=== PATIENT | male | born 1955 | race Caucasian/White ===

== ENCOUNTER → 2017-02-09 | Outpatient (CLI) | payer MEDICARE ==
[~2017-02-09] MED LIST: APIDRA SOL100 UNIT/1 SQ; ASPIRIN81 MG PO; CLINDAMYCIN HC300 MG PO; COREG 12.5MG12.5 MG PO; ENTRESTO PO; FENOFIBRATE160 MG PO; FUROSEMIDE80 MG PO; GLUCOPHAGE1000 MG PO; LANTUS SOL100 UNIT/1 SQ; LASIX20 MG PO; LIPITOR TAB 2020 MG PO; MAGOX 400400 MG PO; METFORMIN HCL1000 MG PO; PLAVIX 75 MG TA75 MG PO; VITAMIN D10000 UNIT PO
[2017-02-09 12:16] LABS: HEMOGLOBIN 13.2 gm/dl (14.0-17.5); RED BLOOD COUNT 4.45 M/UL (4.20-5.50); WHITE BLOOD COUNT 6.1 K/UL (4.5-11.0)
== END ==
LOC: LAB 11:42
PROVIDERS: Internal Medicine Nephrology
DX: N18.3 Chronic kidney disease, stage 3 (moderate) (principal)
CPT/HCPCS: 36415; 80048; 81001; 82043; 82570; 85027

== ENCOUNTER → 2017-02-16 | Outpatient (CLI) | payer MEDICARE | LOC: LAB 11:44 | PROVIDERS: Internal Medicine Nephrology | DX: N17.9 Acute kidney failure, unspecified (principal); E11.9 Type 2 diabetes mellitus without complications | CPT/HCPCS: 36415; 80048 ==

== ENCOUNTER 2017-04-06 14:24 | Inpatient (IN) | payer MEDICARE ==
[~2017-04-06] VITALS: Ht 182.9 cm; Wt 113.4 kg
[2017-04-06] MEDS ORDERED: GLUCOPHAGE1000 MG PO (17:00)
[2017-04-06] MEDS ORDERED: VITAMIN D10000 UNIT PO (17:01)
[2017-04-06] MEDS ORDERED: FENOFIBRATE160 MG PO (17:03)
[2017-04-06] MEDS ORDERED: LIPITOR TAB 2020 MG PO (17:03)
[2017-04-06] MEDS ORDERED: COREG 12.5MG12.5 MG PO (17:03)
[2017-04-06] MEDS ORDERED: MAGOX 400400 MG PO (17:03)
[2017-04-06] MEDS ORDERED: LANTUS SOL100 UNIT/1 SQ (17:04)
[2017-04-06] MEDS ORDERED: APIDRA SOL100 UNIT/1 SQ (17:05)
[2017-04-06] MEDS ORDERED: ENTRESTO PO (17:06)
[2017-04-06 18:30] LABS: HEMOGLOBIN 11.6 gm/dl (14.0-17.5); RED BLOOD COUNT 3.98 M/UL (4.20-5.50); WHITE BLOOD COUNT 12.2 K/UL (4.5-11.0)
[2017-04-07 04:41] LABS: HEMOGLOBIN 11.2 gm/dl (14.0-17.5); RED BLOOD COUNT 3.89 M/UL (4.20-5.50)
[2017-04-08 05:37] LABS: HEMOGLOBIN 9.8 gm/dl (14.0-17.5); WHITE BLOOD COUNT 9.7 K/UL (4.5-11.0)
[2017-04-08 05:40] LABS: RED BLOOD COUNT 3.39 M/UL (4.20-5.50)
[2017-04-09 04:58] LABS: HEMOGLOBIN 10.4 gm/dl (14.0-17.5); RED BLOOD COUNT 3.64 M/UL (4.20-5.50); WHITE BLOOD COUNT 10.6 K/UL (4.5-11.0)
[2017-04-10 04:47] LABS: HEMOGLOBIN 9.6 gm/dl (14.0-17.5); RED BLOOD COUNT 3.37 M/UL (4.20-5.50); WHITE BLOOD COUNT 9.9 K/UL (4.5-11.0)
[2017-04-11 04:51] LABS: HEMOGLOBIN 9.5 gm/dl (14.0-17.5); RED BLOOD COUNT 3.36 M/UL (4.20-5.50); WHITE BLOOD COUNT 7.6 K/UL (4.5-11.0)
[2017-04-11] MEDS ORDERED: LASIX20 MG PO (16:03)
[2017-04-11] MEDS ORDERED: CLINDAMYCIN HC300 MG PO (16:04)
[2017-04-11] MEDS ORDERED: FUROSEMIDE80 MG PO (16:07)
[2017-04-11] MEDS ORDERED: PLAVIX 75 MG TA75 MG PO (16:14)
[2017-05-24] MEDS ORDERED: ASPIRIN81 MG PO (19:17)
[2017-05-24] MEDS ORDERED: METFORMIN HCL1000 MG PO (19:17)
== END 2017-04-11 16:32 | disposition home health service (06) | DRG 253 ==
LOC: ZOBSOF 14:39 → MED SURG 4 14:39
PROVIDERS: Emergency Medicine; Internal Medicine; Internal Medicine Nephrology; ADMIT Internal Medicine
PROC: 0HBMXZZ Excision of Right Foot Skin, External Approach (ICD-10-PCS; principal; 2017-04-07)
PROC: 047R3ZZ Dilation of Right Posterior Tibial Artery, Percutaneous Approach (ICD-10-PCS; 2017-04-10)
PROC: B41F1ZZ Fluoroscopy of Right Lower Extremity Arteries using Low Osmolar Contrast (ICD-10-PCS; 2017-04-10)
PROC: B4101ZZ Fluoroscopy of Abdominal Aorta using Low Osmolar Contrast (ICD-10-PCS; 2017-04-10)
PROC: 3E043GC Introduction of Other Therapeutic Substance into Central Vein, Percutaneous Approach (ICD-10-PCS; 2017-04-10)
DX: E11.52 Type 2 diabetes mellitus with diabetic peripheral angiopathy with gangrene (principal); I13.0 Hypertensive heart and chronic kidney disease with heart failure and stage 1 through stage 4 chronic kidney disease, or unspecified chronic kidney disease; L03.116 Cellulitis of left lower limb; L97.419 Non-pressure chronic ulcer of right heel and midfoot with unspecified severity; I50.22 Chronic systolic (congestive) heart failure; N17.9 Acute kidney failure, unspecified; I70.293 Other atherosclerosis of native arteries of extremities, bilateral legs; A49.01 Methicillin susceptible Staphylococcus aureus infection, unspecified site; E11.621 Type 2 diabetes mellitus with foot ulcer; E11.42 Type 2 diabetes mellitus with diabetic polyneuropathy; R23.8 Other skin changes; E11.22 Type 2 diabetes mellitus with diabetic chronic kidney disease; N18.9 Chronic kidney disease, unspecified; E11.65 Type 2 diabetes mellitus with hyperglycemia; N28.89 Other specified disorders of kidney and ureter; I25.5 Ischemic cardiomyopathy; I25.10 Atherosclerotic heart disease of native coronary artery without angina pectoris; E66.9 Obesity, unspecified; Z72.3 Lack of physical exercise; Z88.0 Allergy status to penicillin; Z95.810 Presence of automatic (implantable) cardiac defibrillator; Z87.891 Personal history of nicotine dependence; Z79.4 Long term (current) use of insulin; Z79.84 Long term (current) use of oral hypoglycemic drugs; Z81.8 Family history of other mental and behavioral disorders; Z82.49 Family history of ischemic heart disease and other diseases of the circulatory system
CPT/HCPCS: ECHO; 36245; 36415; 73630; 75630; 80048; 80053; 80202; 82570; 82962; 83036; 83735; 84156; 85025; 85027; 85347; 87070; 87077; 87186; 87205; 93306; C1725; C1769; C1887; J1644; J2250; J3010; J3370; J7030; J7070; Q9965

== ENCOUNTER → 2017-04-17 | Outpatient (CLI) | payer MEDICARE | LOC: LAB 10:19 | PROVIDERS: Emergency Medicine | DX: N17.9 Acute kidney failure, unspecified (principal) | CPT/HCPCS: 36415; 80048 ==

== ENCOUNTER → 2017-05-19 | Outpatient (CLI) | payer MEDICARE | LOC: LAB 10:42 | DX: E87.5 Hyperkalemia (principal); E11.9 Type 2 diabetes mellitus without complications; I10 Essential (primary) hypertension | CPT/HCPCS: 36415; 71020; 84132 ==